=== PATIENT | female | born 1945 | race Two or more races ===

== ENCOUNTER → 2021-01-08 | Outpatient (CLI) | payer MEDICARE, OTHER ==
[2021-01-08 14:23] VITALS: BP 154/88; PULSE 78; RESP 18; TEMP 98.3
--- NOTE | 2021-01-08 14:53 | P.GSHP ---
History of Present Illness H&P Date: 01/08/21 Chief Complaint: lump in her left breast Christine is a 75 year old white female seen in consultation for Dr. Rios regarding a lump in her left breast. She felt this approximately 1 month ago. It has not changed in size. Is in the lower outer aspect of the breast. She does not feel any other lumps masses or nodules in either breast. She states that times her left breast feels as though was bruised but otherwise it is not painful. She is [place] complaining [place] [address] she underwent an ultrasound of the area of concern which did not show any evidence of suspicious suspicious nodules. [place] mammogram [place] [address] which was benign BIRADS 1 She has never had any surgery on her breast. She is not complaining of any trauma or infection in the breast. Caffeine: none nicotine: none chocolate: rare Family history: sister: two forms of breast cancer, negative mammogram; doing well Hormonal history: Menarche: 15 , breast fed: no, age at first : 20 Menopause: 43 control pills: 2 years; than used an IUD Surgical History: tubal-ligation bladder suspension Medical History: HTN hypothyroid passing out (orthostatic postural hypotension) Social History: nicotine: stopped 1998 < 1/PPD smoked about 30 years alcohol: rare drugs: none - Constitutional Constitutional: Denies chills, Denies fever - EENT Eyes: denies blurred vision, denies pain Ears: deny: decreased hearing, tinnitus Ears, nose, mouth and throat: Denies headache, Denies sore throat - Breasts Breasts: bilateral: as per HPI - Cardiovascular Cardiovascular: Denies chest pain, Denies shortness of breath - Respiratory Respiratory: Denies cough, Denies 7 - Gastrointestinal Gastrointestinal: Denies abdominal pain, Denies diarrhea, Denies nausea, Denies vomiting - Genitourinary (Female) Genitourinary: Denies dysuria, Denies hematuria - Menstruation Menstruation: Reports postmenopausal - Musculoskeletal Musculoskeletal: Denies myalgias - Integumentary Integumentary: Denies pruritus, Denies rash - Neurological Neurological: Denies numbness, Denies weakness - Psychiatric Psychiatric: Reports anxiety, Reports depression - Endocrine Endocrine: Denies fatigue, Denies weight change - Hematologic/Lymphatic Comment: none - Allergic/Immunologic Allergic/Immunologic: Reports seasonal allergies Past Medical History History of Any Multi-Drug Resistant Organisms: None Reported Smoking Status: Former smoker Medications and Allergies Home Medications Medication Instructions Recorded Confirmed Type ALPRAZolam [Xanax] 0.5 mg PO Q8HR PRN 01/08/21 01/08/21 History Gwdcxjp-[id number]-Krqg [id number] 2 each PO QAM 01/08/21 01/08/21 History [Excedrin] Calcium Carbonate [Calcium] 1,200 mg PO QAM 01/08/21 01/08/21 History Cholecalciferol (Vitamin D3) 125 mcg PO DAILY 01/08/21 01/08/21 History [Vitamin D3 (5000 Iu)] Esomeprazole Magnesium [NexIUM] 40 mg PO DAILY 01/08/21 01/08/21 History FLUoxetine HCL [PROzac] 40 mg PO DAILY 01/08/21 01/08/21 History Flaxseed Oil 1,000 mg PO HS 01/08/21 01/08/21 History Levothyroxine Sodium 100 mcg PO QAM 01/08/21 01/08/21 History Multivitamin [Multivitamins Adult 1 each PO QAM 01/08/21 01/08/21 History Gummies] Risedronate Sodium [Actonel] 150 mg PO QMONTHLY 01/08/21 01/08/21 History Simvastatin 40 mg PO HS 01/08/21 01/08/21 History amLODIPine BESYLATE/BENAZEPRIL 1 cap PO HS 01/08/21 01/08/21 History [Lotrel 10-20 MG] Allergies Allergy/AdvReac Type Severity Reaction Status Date / Time metronidazole [From Flagyl] Allergy Nausea & Unverified 01/08/21 14:15 Vomiting METAL AdvReac Rash/Hives Uncoded 01/08/21 14:15 Surgical - Exam Vital Signs Temp Pulse Resp BP Pulse Ox 98.3 F 78 18 154/88 98 01/08/21 14:21 01/08/21 14:21 01/08/21 14:21 01/08/21 14:21 01/08/21 14:21 BMI 30.2 - General well developed, well nourished, no distress - Eyes normal ocular movement - ENT normal pinna, normal mucosa - Neck no masses, trachea midline - Respiratory normal expansion, normal respiratory effort, clear to auscultation - Cardiovascular Rhythm: regular Heart Sounds: normal: S1, S2 - Abdomen Abdomen: soft - Integumentary normal turgor - Neurologic no disoriented, no combative - Musculoskeletal normal gait - Psychiatric oriented to time, oriented to person, oriented to place, speech is normal, memory intact Breast Exam: BRA: 38B inspection: Bilateral grade 2 ptosis Palpation: Right breast: Multiple positional exam fibrocystic changes, no dominant masses or nodules of concern Right axilla: No adenopathy of concern left breast: Multiple positional exam fibrocystic changes no dominant masses or nodules of concern slightly more prominent tissue in the upper outer quadrant in the periareolar region but appears to be consistent with fibrocystic change Left axilla: No adenopathy of concern Results Mammogram and ultrasound results reviewed Assessment and Plan Assessment: Impression: 1. Fibrocystic breast changes 2. Left breast fullness as per patient in the lateral periareolar area 3. Family history of breast cancer 4. Recent left breast ultrasound benign 5. Physical examination slight increased fullness upper-outer quadrant left breast and periareolar region Plan: 1. Bilateral mammogram at this time her last one was in January 2020 2. FNA of the left breast upper quadrant region and posteriorly region after mammogram of mammogram does not show anything of concern 3. Follow-up here after mammogram CC: Dr. Rios
== END ==
LOC: WWCWWP 13:53
PROVIDERS: ATTEND Surgery
DX: N60.12 Diffuse cystic mastopathy of left breast (principal); I10 Essential (primary) hypertension; Z79.890 Hormone replacement therapy; E03.9 Hypothyroidism, unspecified; Z79.899 Other long term (current) drug therapy; Z87.891 Personal history of nicotine dependence; Z80.3 Family history of malignant neoplasm of breast; Z88.1 Allergy status to other antibiotic agents

== ENCOUNTER → 2021-01-21 | Outpatient (CLI) | payer MEDICARE, OTHER ==
--- NOTE | 2021-01-21 14:41 | MM ---
Reason for exam: clinical finding. History: Patient is postmenopausal and history of other cancer. Family history of breast cancer in sister at age 73. Took hormonal contraceptives for 3 years. Indicated problem(s): lump or thickening in the left breast. Physical Findings: Nurse Summary: 1cm nodule in the left breast at 6 o'clock (nurse db). MG 3D Diag Mammo W/Cad WEN Bilateral CC and MLO view(s) were taken. The breast tissue is heterogeneously dense. This may lower the sensitivity of mammography. Left 6mm vague nodule at 8 o'clock, 3cm from nipple. Ultrasound recommended. These results were verbally communicated with the patient and result sheet given to the patient on 01/21/21. ASSESSMENT: Incomplete: need additional imaging evaluation, BI-RAD 0 RECOMMENDATION: Ultrasound of the left breast.
--- NOTE | 2021-01-21 14:42 | USB ---
Reason for exam: additional evaluation requested from abnormal screening. History: Patient is postmenopausal and history of other cancer. Family history of breast cancer in sister at age 73. Took hormonal contraceptives for 3 years. US Breast Limited LT Right limited breast ultrasound including focal area of concern, retroareolar and axilla demonstrates no cystic or solid lesion seen. No sonographic correlate. Probably benign asymmetry/overlap. These results were verbally communicated with the patient and result sheet given to the patient on 01/21/21. ASSESSMENT: Probably benign, BI-RAD 3 RECOMMENDATION: Follow-up diagnostic mammogram of the left breast in 6 months.
== END | disposition home or self-care (01) ==
LOC: RADMAMWWP 12:47
PROVIDERS: ATTEND Surgery
DX: N63.21 Unspecified lump in the left breast, upper outer quadrant (principal); R92.8 Other abnormal and inconclusive findings on diagnostic imaging of breast; Z80.3 Family history of malignant neoplasm of breast
CPT/HCPCS: 77066; 76642; G0279; 77062

== ENCOUNTER → 2021-02-04 | Outpatient (CLI) | payer MEDICARE, OTHER ==
--- NOTE | 2021-02-04 09:56 | P.PN ---
Progress Note - Text Progress Note Date: 02/04/21 Christine is a 75-year-old white female who was seen on Re: Some fullness in her left breast. Recent mammogram and ultrasound performed on 6320 did not reveal any specific lesions of concern in the left breast. The recommendation as per radiology was for follow-up diagnostic mammogram of the left breast in 6 months. On examination there was a question of some fullness and it was recommended that an FNA of this area be performed. Patient presents today for the FNA. The left breast was prepped using alcohol A 22-gauge A 12 mL syringe was used to pass into the area of increased fullness. The area of increased fullness was at the approximate 3 o'clock position in the periareolar posterior region. The specimens were prepared and sent to pathology. The patient tolerated the procedure with no difficulty. The patient will call next week for results. If there is no atypia she will have a repeat left breast mammogram in 6 months. If atypia is noted than an open biopsy would be recommended. She has any questions or concerns or changes in her breast prior to this 6 months she should come and see us sooner. CC: Dr Rios
[2021-02-04 12:06] VITALS: BP 138/77; PULSE 76; RESP 16; TEMP 98
== END ==
LOC: WWCWWP 08:46
PROVIDERS: ATTEND Surgery
DX: N64.59 Other signs and symptoms in breast (principal); Z88.1 Allergy status to other antibiotic agents; Z88.9 Allergy status to unspecified drugs, medicaments and biological substances
CPT/HCPCS: 88173; 88305

== ENCOUNTER → 2021-08-16 | Outpatient (CLI) | payer MEDICARE, OTHER ==
--- NOTE | 2021-08-16 13:42 | MM ---
Reason for exam: follow-up at short interval from prior study. Last mammogram was performed 7 months ago. History: Patient is postmenopausal and history of other cancer. Family history of breast cancer in sister at age 73. Benign excisional biopsy of the left breast. Took hormonal contraceptives for 3 years. Physical Findings: Nurse did not find any significant physical abnormalities on exam. MG 3D Diag Mammo W/Cad LT CC and MLO view(s) were taken of the left breast. Prior study comparison: January 21, 2021, bilateral MG 3d diag mammo w/cad WEN. The breast tissue is heterogeneously dense. This may lower the sensitivity of mammography. There is no discrete abnormality including area of concern left breast. These results were verbally communicated with the patient and result sheet given to the patient on 08/16/21. ASSESSMENT: Benign, BI-RAD 2 RECOMMENDATION: Routine screening mammogram of both breasts in 6 months.
== END | disposition home or self-care (01) ==
LOC: RADMAMWWP 12:27
PROVIDERS: ATTEND Surgery
DX: R92.8 Other abnormal and inconclusive findings on diagnostic imaging of breast (principal)
CPT/HCPCS: 77065; G0279; 77061

== ENCOUNTER → 2021-08-26 | Outpatient (CLI) | payer MEDICARE, OTHER ==
[2021-08-26 14:36] VITALS: BP 160/80; PULSE 75; RESP 18; TEMP 97.8
--- NOTE | 2021-08-26 15:06 | P.PN ---
Subjective Progress Note Date: 08/26/21 Principal diagnosis: fibrocystic breast changes Christine is a 75 year old white female seen initially in consultation for Dr. Rios regarding a lump in her left breast. She felt this about 1 month prior to her visit. It had not changed in size. It was in the lower outer aspect of the breast. She cosme not feel any other lumps masses or nodules in either breast. She stated that times her left breast feels as though was bruised but otherwise it was not painful. She was not complaining [place] [address] she underwent an ultrasound of the area of concern which did not show any evidence of suspicious suspicious nodules. [place] [address] of the area which revealed rare ductal cells and small fragments of adipose tissue. Since that time she does not feel any nodularity of concern in either breast. She had a left breast mammogram performed on 084465 which was benign BIRADS 2. Her last bilateral mammgram was 01-21-21. She has never had any surgery on her breast. She is not complaining of any trauma or infection in the breast. Caffeine: none nicotine: none chocolate: rare Family history: sister: two forms of breast cancer at 74, negative mammogram; doing well Hormonal history: Menarche: 15 , breast fed: no, age at first : 20 Menopause: 43 control pills: 2 years; than used an IUD Surgical History: tubal-ligation bladder suspension Medical History: HTN hypothyroid passing out (orthostatic postural hypotension) Social History: nicotine: stopped 1998 < 1/PPD smoked about 30 years alcohol: rare drugs: none - Constitutional Constitutional: Denies chills, Denies fever - EENT Eyes: denies blurred vision, denies pain Ears: deny: decreased hearing, tinnitus Ears, nose, mouth and throat: Denies headache, Denies sore throat - Breasts Breasts: bilateral: as per HPI - Cardiovascular Cardiovascular: Denies chest pain, Denies shortness of breath - Respiratory Respiratory: Denies cough - Gastrointestinal Gastrointestinal: Denies abdominal pain, Denies diarrhea, Denies nausea, Denies vomiting - Genitourinary (Female) Genitourinary: Denies dysuria, Denies hematuria - Menstruation Menstruation: Reports postmenopausal - Musculoskeletal Musculoskeletal: Denies myalgias - Integumentary Integumentary: Denies pruritus, Denies rash - Neurological Neurological: Denies numbness, Denies weakness - Psychiatric Psychiatric: Reports anxiety, Reports depression - Endocrine Endocrine: Denies fatigue, Denies weight change - Hematologic/Lymphatic Comment: none - Allergic/Immunologic Allergic/Immunologic: Reports seasonal allergies Objective - Vital Signs Vital signs: Vital Signs Temp 97.8 F 08/26/21 14:34 Pulse 75 08/26/21 14:34 Resp 18 08/26/21 14:34 BP 160/80 08/26/21 14:34 Pulse Ox 100 08/26/21 14:34 Intake & Output 08/25/21 08/26/21 08/26/21 18:59 06:59 18:59 Weight 77.111 kg - Constitutional General appearance: Present: cooperative - EENT Eyes: Present: EOMI ENT: Present: hearing grossly normal - Neck Neck: Present: normal ROM - Respiratory Respiratory: bilateral: CTA - Cardiovascular Rhythm: regular Heart sounds: normal: S1, S2 - Integumentary Integumentary: Present: normal turgor - Musculoskeletal Musculoskeletal: Present: gait normal - Psychiatric Psychiatric: Present: A&O x's 3, appropriate affect, intact judgment & insight - Additional findings Additional findings: Breast Exam: BRA: 38B inspection: bilateral grade 2/3 ptosis Operation: Right breast: Multi-positional exam fibrocystic changes no dominant masses or no dules of concern Right axilla: No adenopathy of concern Left breast: Multiple positional exam fibrocystic changes no dominant masses or nodules of concern no nodularity of concern on today's exam Left axilla: No adenopathy of concern Assessment and Plan Assessment: Impression: HTN hypothyroid passing out (orthostatic postural hypotension) The cystic breast changes Recent left breast mammogram 08-16-21 benign BIRADS 2 Plan: Bilateral mammogram in 6 months with physician exam at that time Patient will call sooner if any questions or concerns CC: Dr. Rios
== END | disposition home or self-care (01) ==
LOC: WWCWWP 13:49
PROVIDERS: ATTEND Surgery
DX: Z53.9 Procedure and treatment not carried out, unspecified reason (principal)

== ENCOUNTER → 2022-01-24 | Outpatient (CLI) | payer MEDICARE, OTHER ==
--- NOTE | 2022-01-24 19:36 | BD ---
EXAMINATION TYPE: Axial Bone Density DATE OF EXAM: 01/24/2022 COMPARISON: NONE CLINICAL HISTORY: 76 years year old Female. ICD-10 CODE: M81.0 OSTEOPOROSIS Height: 63 Weight: 170 FRAX RISK QUESTIONS: Alcohol (3 or more units per day): NO Family History (Parent hip fracture): YES MOTHER Glucocorticoids (More than 3mos): NO History of Fracture in Adulthood: YES Secondary Osteoporosis: 1. Type 1 Diabetes: NO 2. Hyperthyroidism: NO 3. Menopause before 45: YES 4. Malnutrition: NO 5. Chronic liver disease: NO Rheumatoid Arthritis: NO Current Tobacco Use: NO RISK FACTORS HISTORY OF: Hip Fracture (Right/Left): NO Spine Fracture: NO History of Wrist Fracture: NO Surgery to Spine/Hip(right/left)/Wrist (right/left): NO Family History of Osteoporosis: YES, MOTHER, SISTER Active: YES Diet low in dairy products/other sources of calcium: YES Take estrogen and/or progesterone medications: NO Lost more than 2 inches in height since high school: NO Frequent falls: NO Poor Health: NO Hyperparathyroidism: NO Adrenal Insufficiency: NO MEDICATIONS: Prednisone or other steroids: NO Thyroid Medications: YES Which medication: LEVOTHYROXINE How Lon-15 YEARS Osteoporosis Medications: YES Which medication: ACTONEL How Lon YEARS Additional Medications: NEXIUM, LOTREL, SIMVASTATIN, XANAX, CALCIUM, VIT D, MULTI VIT., GLUCOSAMINE, FLAXSEED OIL Additional History: EXAM MEASUREMENTS: Bone mineral densitometry was performed using the [employer] System. Bone mineral density as measured about the Lumbar spine is: ----- L1-L4(G/cm2): 1.166 T Score Values are as follows: ----- L1: -0.8 ----- L2: -0.9 ----- L3: 0.0 ----- L4: 2.0 ----- L1-L4: -0.1 BASELINE STUDY AT [facility] Bone mineral density about the R hip (g/cm2): 0.713 Bone mineral density about the L hip (g/cm2): 0.627 T Score values are as follows: -----R Neck: -2.3 -----L Neck: -3.0 -----R Total: -2.3 -----L Total: -3.0 BASELINE STUDY AT [facility]. FRAX%s: The graph provided illustrates a 53.6% chance for a major osteoporotic fx and a 40.2% chance for the hips probability for fx in 10 years time. IMPRESSION: Osteoporosis (T Score less than -2.5). There is increased fracture risk and therapy is usually indicated based on age. Re-Screen 1-2 years. NOTE: T-SCORE=SD OF THE YOUNG ADULT MEAN.
== END | disposition home or self-care (01) ==
LOC: RADBDWWP 10:49
PROVIDERS: ATTEND Internal Medicine Geriatric Medicine
DX: R92.8 Other abnormal and inconclusive findings on diagnostic imaging of breast (principal); M81.0 Age-related osteoporosis without current pathological fracture
CPT/HCPCS: 77080

== ENCOUNTER → 2022-01-24 | Outpatient (CLI) | payer MEDICARE, OTHER ==
--- NOTE | 2022-01-26 07:44 | MM ---
Reason for Exam: Screening (asymptomatic). Last screening mammogram was performed 12 month(s) ago. Patient History: Menarche at age 15. First Full-Term at age 20. Postmenopausal. Other cancer. Patient used Hormonal Contraceptives for 3 years. 02/02/2021, FNA Biopsy on the Left side. Benign Excisional Biopsy on the left side. Sister had breast cancer, age 73. Risk Values: Swapna 5 year model risk: 4.5%. NCI Lifetime model risk: 8.6%. Prior Study Comparison: 01/21/2021 Bilateral Diagnostic Mammogram, [facility]. 08/16/2021 Left Diagnostic Mammogram, [facility]. Tissue Density: The breast tissue is heterogeneously dense. This may lower the sensitivity of mammography. Findings: Analyzed By CAD. There is no suspicious group of microcalcifications or new suspicious mass in either breast. Benign calculations seen bilaterally. Overall Assessment: Benign, BI-RAD 2 Management: Screening Mammogram of both breasts in 1 year. A clinical breast exam by your physician is recommended on an annual basis and results should be correlated with mammographic findings. Electronically signed and approved by: Berny Ruvalcaba M.D. Radiologis
== END | disposition home or self-care (01) ==
LOC: RADMAMWWP 10:46
PROVIDERS: ATTEND Surgery
DX: Z12.31 Encounter for screening mammogram for malignant neoplasm of breast (principal)
CPT/HCPCS: 77063; 77067

== ENCOUNTER → 2022-03-11 | Outpatient (CLI) | payer MEDICARE, OTHER ==
[2022-03-11 16:16] VITALS: BP 152/92; PULSE 70; RESP 18; TEMP 98
--- NOTE | 2022-03-11 16:25 | P.PN ---
Subjective Progress Note Date: 03/11/22 Principal diagnosis: fibrocystic breast changes fibrocystic breast changes Christine is a 76 year old white female seen initially in consultation for Dr. Rios regarding a lump in her left breast. She felt this about 1 month prior to her visit. It had not changed in size. It was in the lower outer aspect of the breast. She cosme not feel any other lumps masses or nodules in either breast. She stated that times her left breast feels as though was bruised but otherwise it was not painful. She was not complaining of any nipple discharge or skin changes. On she underwent an ultrasound of the area of concern which did not show any evidence of suspicious suspicious nodules. She underwent an FNA on of the area which revealed rare ductal cells and small fragments of adipose tissue. Since that time she does not feel any nodularity of concern in either breast. She had a left breast mammogram performed on [id number] which was benign BIRADS 2. Her last bilateral mammgram was 01-21-21. She has never had any surgery on her breast. She is not complaining of any trauma or infection in the breast. 03-11-22 Bilateral mammogram on 01-24-22 BIRAD 2 Dear is not complaining of any lumps masses or nodules of concern in her breast. She's not had any recent trauma or infection in the breast. Caffeine: none nicotine: none chocolate: rare Family history: sister: two forms of breast cancer at 74, negative mammogram; doing well Hormonal history: Menarche: 15 , breast fed: no, age at first : 20 Menopause: 43 control pills: 2 years; than used an IUD Surgical History: tubal-ligation bladder suspension Medical History: HTN hypothyroid passing out (orthostatic postural hypotension) Social History: nicotine: stopped 1998 < 1/PPD smoked about 30 years alcohol: rare drugs: none - Constitutional Constitutional: Denies chills, Denies fever - EENT Eyes: denies blurred vision, denies pain Ears: deny: decreased hearing, tinnitus Ears, nose, mouth and throat: Denies headache, Denies sore throat - Breasts Breasts: bilateral: as per HPI - Cardiovascular Cardiovascular: Denies chest pain, Denies shortness of breath - Respiratory Respiratory: Denies cough - Gastrointestinal Gastrointestinal: Denies abdominal pain, Denies diarrhea, Denies nausea, Denies vomiting - Genitourinary (Female) Genitourinary: Denies dysuria, Denies hematuria - Menstruation Menstruation: Reports postmenopausal - Musculoskeletal Musculoskeletal: Denies myalgias - Integumentary Integumentary: Denies pruritus, Denies rash - Neurological Neurological: Denies numbness, Denies weakness - Psychiatric Psychiatric: Reports anxiety, Reports depression - Endocrine Endocrine: Denies fatigue, Denies weight change - Hematologic/Lymphatic Comment: none - Allergic/Immunologic Allergic/Immunologic: Reports seasonal allergies Objective - Vital Signs Vital signs: Vital Signs Temp 98.0 F 03/11/22 16:12 Pulse 70 03/11/22 16:12 Resp 18 03/11/22 16:12 BP 152/92 03/11/22 16:12 Pulse Ox 96 03/11/22 16:12 FiO2 Intake & Output 03/10/22 03/11/22 03/11/22 18:59 06:59 18:59 Weight 77.111 kg - Exam BMI: 30.1 - Constitutional General appearance: Present: cooperative - EENT Eyes: Present: EOMI ENT: Present: hearing grossly normal - Neck Neck: Present: normal ROM - Respiratory Respiratory: bilateral: CTA - Cardiovascular Rhythm: regular Heart sounds: normal: S1, S2 - Integumentary Integumentary: Present: normal turgor - Musculoskeletal Musculoskeletal: Present: gait normal - Psychiatric Psychiatric: Present: A&O x's 3, appropriate affect, intact judgment & insight - Additional findings Additional findings: Breast Exam: BRA: 38B inspection: Bilateral grade 2 ptosis Palpation: Right breast: Multiple positional exam fibrocystic changes no dominant masses or nodules of concern Right axilla: No adenopathy of concern Left breast: Multiple positional exam fibrocystic changes no dominant masses or nodules of concern Left axilla: No adenopathy of concern Assessment and Plan Assessment: Impression: Fibrocystic breast changes Bilateral mammogram 6622 BIRADS 2 Plan: Bilateral mammogram 1 year Follow-up in 1 year CC: Dr. Rios
== END ==
LOC: WWCWWP 15:53
PROVIDERS: ATTEND Surgery
DX: N60.11 Diffuse cystic mastopathy of right breast (principal); N60.12 Diffuse cystic mastopathy of left breast; I10 Essential (primary) hypertension; E03.9 Hypothyroidism, unspecified; Z87.891 Personal history of nicotine dependence; Z88.1 Allergy status to other antibiotic agents; Z88.9 Allergy status to unspecified drugs, medicaments and biological substances

== ENCOUNTER → 2023-01-25 | Outpatient (CLI) | payer MEDICARE, OTHER ==
--- NOTE | 2023-01-25 14:05 | MM ---
Reason for Exam: Screening (asymptomatic). Last screening mammogram was performed 12 month(s) ago. Patient History: Menarche at age 15. First Full-Term at age 20. Postmenopausal. Other cancer. Patient used Hormonal Contraceptives for 3 years. 02/02/2021, FNA Biopsy on the Left side. Benign Excisional Biopsy on the left side. Sister had breast cancer, age 73. Risk Values: Swapna 5 year model risk: 4.5%. NCI Lifetime model risk: 7.9%. Prior Study Comparison: 01/21/2021 Bilateral Diagnostic Mammogram, [facility]. 08/16/2021 Left Diagnostic Mammogram, [facility]. 01/24/2022 Bilateral MG 3D screening mammo w/cad, [facility]. Tissue Density: The breast tissue is heterogeneously dense. This may lower the sensitivity of mammography. Findings: Analyzed By CAD. There is no suspicious group of microcalcifications or new suspicious mass in either breast. Benign-appearing calcifications within both breasts. Overall Assessment: Benign, BI-RAD 2 Management: Screening Mammogram of both breasts in 1 year. A clinical breast exam by your physician is recommended on an annual basis and results should be correlated with mammographic findings. Electronically signed and approved by: Santiago Stack D.O.
== END | disposition home or self-care (01) ==
LOC: RADMAMWWP 10:52
PROVIDERS: ATTEND Surgery
DX: Z12.31 Encounter for screening mammogram for malignant neoplasm of breast (principal); Z78.0 Asymptomatic menopausal state; Z80.3 Family history of malignant neoplasm of breast
CPT/HCPCS: 77063; 77067